=== PATIENT | female | born 1965 | race Asian ===

== ENCOUNTER 2019-02-17 17:33 | Emergency (ER) | payer OTHER, SELFPAY ==
[2019-02-17 17:42] VITALS: BP 149/69; PULSE 80; RESP 14; TEMP 36.4; O2SAT 99
[2019-02-17 19:51] LABS: Mean Corpuscular HGB Conc 29.5 % (30-36); Mean Corpuscular Hemoglobin 15.9 PG (26-34); Platelet Count 373 X10^3/uL (150-400); Red Blood Cell Count 4.08 X10^6/uL (4.0-5.2); Red Cell Distribution Width 21.2 % (11.6-14.8); White Blood Cell Count 6.9 X10^3/uL (4.5-11.0)
--- NOTE | 2019-02-17 19:53 | ED.RECABL ---
HPI - Recheck/Abnormal Lab/Rx <RITA Plata - Last Filed: 02/17/19 22:24> General Chief Complaint: Recheck/Abnormal Lab/Rx Stated Complaint: abnormal labs, states hemogloban is low Time Seen by Provider: 02/17/19 19:42 Source: patient Mode of arrival: ambulatory Limitations: no limitations History of Present Illness HPI narrative: Patient is a 53-year-old female with history of iron deficiency anemia who presents with her for a chief complaint of concern of low hemoglobin. She states that she saw her new primary care physician, who ordered labs and she received a call stating that her H&H was low. She states she has a history of iron-deficiency anemia is supposed to take iron, but has not been taking it for the past 6 months. She complains of very transient dizziness and lightheadedness, but has no complaints at this point time. Her notes increased fatigue, and falling asleep quickly. She denies any black tarry stools. Patient's previous hemoglobin was 8 in November of 2017. Related Data Home Medications Medication Instructions Recorded Confirmed multivitamin 1 cap PO DAILY 02/17/19 02/17/19 Allergies Allergy/AdvReac Type Severity Reaction Status Date / Time No Known Drug Allergies Allergy Verified 02/17/19 17:47 Review of Systems <RITA Plata - Last Filed: 02/17/19 22:24> Review of Systems GENERAL: See HPI HEENT: Denies sinus pain, ear pain, sore throat, difficulty swallowing, dizziness. RESPIRATORY: Denies dyspnea, cough, wheezing, hemoptysis, sputum. CARDIOVASCULAR: Denies chest pain, palpitations, orthopnea, edema, GASTROINTESTINAL: Denies nausea, vomiting, abdominal pain, diarrhea, constipation, melena. : Denies dysuria, frequency, incontinence, hematuria, urinary retention. MUSCULOSKELETAL: denies weakness, joint pain, or bony pain SKIN: Denies rash, skin lesions, or other NEUROLOGIC: Denies weakness, headache, numbness, change in speech, confusion, seizures, incoordination. PSYCHIATRIC: No concerning psychosocial issues. 12 point review of systems is negative except for those stated above PFSH <RITA Plata - Last Filed: 02/17/19 22:24> Medical History (Updated 02/17/19 @ 20:44 by RITA Plata) Iron deficiency anemia (Acute) Social History Smoking Status: Never smoker Social History Smoking Status: Never smoker Exam <RITA Plata - Last Filed: 02/17/19 22:24> Narrative Exam Narrative: GENERAL: This is a well-nourished, well-developed patient, in no acute distress HEAD: Atraumatic. Normocephalic. No temporal or scalp tenderness. EYES: Pupils equal round and reactive. Extraocular motions intact. No scleral icterus. No injection or drainage. ENT: Nose without bleeding, purulent drainage or septal hematoma. Throat without erythema, tonsillar hypertrophy or exudate. Uvula midline. Airway patent. NECK: Trachea midline. No JVD or lymphadenopathy. Supple, nontender, no meningeal signs. CARDIOVASCULAR: Regular rate and rhythm without murmurs, gallops, or rubs. RESPIRATORY: Clear to auscultation. Breath sounds equal bilaterally. No wheezes, rales, or rhonchi. GASTROINTESTINAL: Abdomen soft, non-tender, nondistended. No hepato-splenomegaly, or palpable masses. No guarding. EXTREMITIES: No clubbing, cyanosis, or edema. No joint tenderness, effusion, or edema noted. BACK: Nontender without deformity or crepitance. No flank tenderness. NEURO: AOx3. SKIN: No rash or erythema. Initial Vital Signs Initial Vital Signs: Vital Signs Temperature 97.6 F 02/17/19 17:42 Pulse Rate 80 02/17/19 17:42 Respiratory Rate 14 02/17/19 17:42 Blood Pressure 149/69 H 02/17/19 17:42 Pulse Oximetry 99 02/17/19 17:42 <Ignacio Hernandez DO - Last Filed: 02/18/19 05:55> Initial Vital Signs Initial Vital Signs: Vital Signs Temperature 97.6 F 02/17/19 17:42 Pulse Rate 80 02/17/19 17:42 Respiratory Rate 14 02/17/19 17:42 Blood Pressure 149/69 H 02/17/19 17:42 Pulse Oximetry 99 02/17/19 17:42 Course <RITA Plata - Last Filed: 02/17/19 22:24> Orders Ordered: ED Orders 02/17/19 19:35 Basic Metabolic Panel Stat Complete Blood Count AUTO DIFF Stat Type and Screen Stat Vital Signs - 8 hr 02/17/19 17:42 02/17/19 20:41 Temperature 97.6 F Pulse Rate 80 73 Respiratory Rate 14 16 Blood Pressure 149/69 H Blood Pressure [Left Arm] 141/75 H Pulse Oximetry 99 95 <Ignacio Hernandez DO - Last Filed: 02/18/19 05:55> Orders Ordered: ED Orders 02/17/19 19:35 Basic Metabolic Panel Stat Complete Blood Count AUTO DIFF Stat Type and Screen Stat Vital Signs - 8 hr 02/17/19 17:42 02/17/19 20:41 Temperature 97.6 F Pulse Rate 80 73 Respiratory Rate 14 16 Blood Pressure 149/69 H Blood Pressure [Left Arm] 141/75 H Pulse Oximetry 99 95 MDM - Recheck/Abnormal Lab/Rx <NILAY Plata-BC - Last Filed: 02/17/19 22:24> Lab Data Result diagrams: 02/17/19 19:35 02/17/19 19:35 Lab Results 02/17/19 02/17/19 02/17/19 Range/Units 19:35 19:35 19:35 WBC 6.9 (4.5-11.0) X10^3/uL RBC 4.08 (4.0-5.2) X10^6/uL Hgb 6.5 L* (12.0-16.0) g/dL Hct 22.0 L (36-46) % MCV 54.0 L (80-100) fL MCH 15.9 L (26-34) PG MCHC 29.5 L (30-36) % RDW 21.2 H (11.6-14.8) % Plt Count 373 (150-400) X10^3/uL Neut % (Auto) Not Reportable Lymph % (Auto) Not Reportable Woodson % (Auto) Not Reportable Eos % (Auto) Not Reportable Baso % (Auto) Not Reportable Lymph # (Auto) Not Reportable Woodson # (Auto) Not Reportable Baso # (Auto) Not Reportable Total Counted 100 Seg Neutrophils % 62.0 (38-70) % Lymphocytes % (Manual) 22.0 L (25-45) % Atypical Lymphs % 7.0 H ( - 0) % Monocytes % (Manual) 6.0 (2-11) % Eosinophils % (Manual) 3.0 (2-4) % Neutrophils # (Manual) 4278 ([id number]) /uL RBC Morphology See below Poikilocytosis 1+ H Anisocytosis 2+ H Microcytosis 3+ H Sodium 139 (137-145) mmol/L Potassium 3.6 (3.4-5.1) mmol/L Chloride 107 (98-107) mmol/L Carbon Dioxide 22 (22-32) mmol/L BUN 14 (7-17) mg/dL Creatinine 0.60 (0.52-1.04) mg/dL Estimated GFR > 60.0 (>60) mL/min BUN/Creatinine Ratio 23.3 H (6-22) Glucose 108 H (70-100) mg/dL Calcium 9.2 (8.4-10.2) mg/dL Blood Type B Positive Antibody Screen Negative MDM Narrative Medical decision making narrative: The patient is a 53-year-old female who presents with a chief complaint of low hemoglobin and hematocrit. She was found have a hemoglobin of 6.5. This is decreased since her November 2017 level of 8 as per her . Given her low levels, I did offer transfusion at this point time. However they declined a transfusion as this is likely an ongoing issue and not acute. There is no reason to think that this is an acute anemia. They would like to trial her prescription iron medication at home prior to transfusion. I encouraged her to follow up with primary care provider soon as possible. I discussed return precautions of dizziness, lightheadedness weakness and passing out. They stated understanding and had no questions or concerns upon discharge. <Ignacio Hernandez, DO - Last Filed: 02/18/19 05:55> Lab Data Lab Results 02/17/19 02/17/19 02/17/19 Range/Units 19:35 19:35 19:35 WBC 6.9 (4.5-11.0) X10^3/uL RBC 4.08 (4.0-5.2) X10^6/uL Hgb 6.5 L* (12.0-16.0) g/dL Hct 22.0 L (36-46) % MCV 54.0 L (80-100) fL MCH 15.9 L (26-34) PG MCHC 29.5 L (30-36) % RDW 21.2 H (11.6-14.8) % Plt Count 373 (150-400) X10^3/uL Neut % (Auto) Not Reportable Lymph % (Auto) Not Reportable Woodson % (Auto) Not Reportable Eos % (Auto) Not Reportable Baso % (Auto) Not Reportable Lymph # (Auto) Not Reportable Woodson # (Auto) Not Reportable Baso # (Auto) Not Reportable Total Counted 100 Seg Neutrophils % 62.0 (38-70) % Lymphocytes % (Manual) 22.0 L (25-45) % Atypical Lymphs % 7.0 H ( - 0) % Monocytes % (Manual) 6.0 (2-11) % Eosinophils % (Manual) 3.0 (2-4) % Neutrophils # (Manual) 4278 (2432-5483) /uL RBC Morphology See below Poikilocytosis 1+ H Anisocytosis 2+ H Microcytosis 3+ H Sodium 139 (137-145) mmol/L Potassium 3.6 (3.4-5.1) mmol/L Chloride 107 (98-107) mmol/L Carbon Dioxide 22 (22-32) mmol/L BUN 14 (7-17) mg/dL Creatinine 0.60 (0.52-1.04) mg/dL Estimated GFR > 60.0 (>60) mL/min BUN/Creatinine Ratio 23.3 H (6-22) Glucose 108 H (70-100) mg/dL Calcium 9.2 (8.4-10.2) mg/dL Blood Type B Positive Antibody Screen Negative Discharge Plan Departure Patient Disposition: Home Clinical Impression: Anemia Qualifiers: Anemia type: unspecified type Qualified Code(s): D64.9 - Anemia, unspecified Discharge Date/Time: 02/17/19 20:52 Interventions: ED Discharge Assessment Last Done: 02/17/19 20:51 Instructions: DI for Iron Deficiency Anemia-Adult Activity Restrictions/Additional Instructions: Today you elected to leave without a blood transfusion. Please follow-up with your primary care provider on Wednesday for a recheck to be scheduled. Please take your iron supplementation as discussed and directed by her primary care provider. Please do not skip doses. Please monitor for dizziness, weakness, passing out and be evaluated if any of these occur or you have any other acute concerns such as chest pain or concern of stroke. Prescriptions: No Action multivitamin Capsule 1 cap PO DAILY RF: 0 Referrals: [facility] [Outside] <Ignacio Hernandez DO - Last Filed: 02/18/19 05:55> Cosign ED Attending Cosanabelature Attestation: I was immediately available in the department for consultation. Documentation has been reviewed. I agree with assessment and plan.
[2019-02-17 19:56] LABS: Add Manual Diff / Slide Review YES; Hemoglobin 6.5 g/dL (12.0-16.0)
[2019-02-17 19:58] LABS: BUN Creatinine Ratio 23.3 (6-22); Blood Urea Nitrogen 14 mg/dL (7-17); Calcium 9.2 mg/dL (8.4-10.2); Carbon Dioxide 22 mmol/L (22-32); Chloride 107 mmol/L (98-107); Estimated Glomerular Filt Rate > 60.0 mL/min (>60); Glucose 108 mg/dL (70-100); HEMOLYSIS < 15 (0-50); Potassium 3.6 mmol/L (3.4-5.1); Sodium 139 mmol/L (137-145)
[2019-02-17 20:20] LABS: Anisocytosis 2+; Microcytosis 3+; Neutrophils Absolute Manual 4278 /uL (3000-5900); Total Cells Counted 100
[2019-02-17 20:21] LABS: Poikilocytosis 1+
[2019-02-17 20:41] VITALS: BP 141/75; PULSE 73; RESP 16; O2SAT 95
== END 2019-02-17 20:52 | disposition home or self-care (01) ==
PROVIDERS: Emergency Medicine; Emergency Provider Nurse Practitioner Family
DX: D64.9 Anemia, unspecified (principal)
CPT/HCPCS: 36591; 80048; 85025; 86850; 86900; 86901; 99282; 99283